=== PATIENT | female | born 1980 ===

== ENCOUNTER → 2019-05-09 | Outpatient (CLI) | payer SELFPAY ==
--- NOTE | 2019-05-09 15:30 | Diagnostic Imaging Report ---
TECHNIQUE: Live grayscale ultrasound of the soft tissues of the posterior neck. COMPARISON: None REASON FOR EXAM: Lump on the neck for six weeks. FINDINGS: No mass or fluid collection is seen in the posterior soft tissues of the neck. No evidence of lymphadenopathy. IMPRESSION: No abnormalities are visualized in the posterior soft tissues of the neck. No focal mass or fluid collection in the area of the patient's reported palpable abnormality. Dictated by: Dictated on workstation # [id number]
== END ==
LOC: RAD 11:18
PROVIDERS: ATTEND Nurse Practitioner Family
DX: R21 Rash and other nonspecific skin eruption (principal)
CPT/HCPCS: 76536

== ENCOUNTER 2023-02-27 15:57 | Emergency (ER) | payer SELFPAY ==
[~2023-02-27] VITALS: Ht 157 cm; Wt 119.0 kg
[2023-02-27 16:00] VITALS: BP 140/97
[2023-02-27 16:23] LABS: BASOPHILS # (AUTO) 0.1 10^3/uL (0.0-0.1); BASOPHILS % (AUTO) 1 % (0-10); EOSINOPHILS # (AUTO) 0.1 10^3/uL (0.0-0.3); EOSINOPHILS % (AUTO) 0 % (0-10); HEMATOCRIT 44 % (35-52); HEMOGLOBIN 14.8 g/dL (11.5-16.0); LYMPHOCYTES # (AUTO) 4.9 10^3/uL (1.0-4.0); LYMPHOCYTES % (AUTO) 29 % (12-44); MEAN CORPUSCULAR HEMOGLOBIN 29 pg (25-34); MEAN CORPUSCULAR HGB CONC 33 g/dL (32-36); MEAN CORPUSCULAR VOLUME 86 fL (80-99); MEAN PLATELET VOLUME 8.9 fL (9.0-12.2); MONOCYTES # (AUTO) 1.2 10^3/uL (0.0-1.0); MONOCYTES % (AUTO) 7 % (0-12); NEUTROPHILS # (AUTO) 10.4 10^3/uL (1.8-7.8); NEUTROPHILS % (AUTO) 62 % (42-75); PLATELET COUNT 388 10^3/uL (130-400); WHITE BLOOD COUNT 16.7 10^3/uL (4.3-11.0)
[2023-02-27 16:32] LABS: ALBUMIN 4.4 GM/DL (3.2-4.5); CHLORIDE 102 MMOL/L (98-107); SODIUM 137 MMOL/L (135-145)
[2023-02-27 16:33] LABS: CALCIUM 9.5 MG/DL (8.5-10.1)
[2023-02-27 16:34] LABS: GLUCOSE 105 MG/DL (70-105); TOTAL PROTEIN 7.9 GM/DL (6.4-8.2)
[2023-02-27 16:35] LABS: CARBON DIOXIDE 24 MMOL/L (21-32)
[2023-02-27 16:36] LABS: BILIRUBIN,TOTAL 0.6 MG/DL (0.1-1.0)
[2023-02-27 16:37] LABS: ALKALINE PHOSPHATASE 94 U/L (40-136)
[2023-02-27 16:38] LABS: CREATININE SERUM 0.75 MG/DL (0.60-1.30); GFR ESTIMATED 102
[2023-02-27 16:39] LABS: BUN/CREATININE RATIO 27
[2023-02-27 16:41] LABS: ALANINE AMINOTRANSFERASE 19 U/L (0-55); MAGNESIUM 2.4 MG/DL (1.6-2.4)
[2023-02-27 16:43] LABS: LYMPHOCYTES % (MANUAL) 26 %; MONOCYTES % (MANUAL) 6 %; NEUTROPHILS % (MANUAL) 68 %; POLYCHROMASIA SLIGHT
--- NOTE | 2023-02-27 16:43 | ED General ---
General Chief Complaint: General Problems/Pain Stated Complaint: CONFUSION, UNBALANCED, UNABLE TO FOCUS Nursing Triage Note: ARRIVED VIA AMB FROM [facility] WITH COMPLAINTS OF BEING TIRED, CONFUSED, PALPITIONS, AND SOA THAT STARTED YESTERDAY. DENIES CHEST PAIN. 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 She has difficulty focusing. She is thirsty and has dry lips. She has experienced some SOA and chest discomfort. She is afebrile with stable vitals sign at this time. She denies fever, chills, diarrhea, nausea or vomiting. She reports sore throat when directly asked. Allergies and Home Medications Allergies Coded Allergies: No Known Drug Allergies (Unverified , 02/27/23) Patient Home Medication List Home Medication List Reviewed: Yes Review of Systems Review of Systems Constitutional: see HPI EENTM: no symptoms reported Respiratory: see HPI Cardiovascular: see HPI Gastrointestinal: no symptoms reported Genitourinary: frequency : No Musculoskeletal: no symptoms reported Skin: no symptoms reported Psychiatric/Neurological: See HPI Hematologic/Lymphatic: No Symptoms Reported Immunological/Allergic: no symptoms reported Past Zkjmjmk-Qnjjpp-Nudtsk Hx Patient Social History Tobacco Use?: No Substance use?: No Alcohol Use?: No Past Medical History Surgeries: Yes Section, Hysterectomy (with BSO) Respiratory: No Cardiac: Yes Hypertension Neurological: No : 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 oz. kg; 48.00 BMI Method: General Appearance: No Apparent Distress, WD/WN HEENT: PERRL/EOMI, Normal ENT Inspection, Pharyngeal Erythema Neck: Normal Inspection; No JVD Respiratory: Lungs Clear, Normal Breath Sounds, No Accessory Muscle Use Cardiovascular: Regular Rate, Rhythm, No Edema, No Murmur Gastrointestinal: Normal Bowel Sounds, Non Tender, Soft Extremity: Normal Inspection, Non Tender, No Calf Tenderness, No Pedal Edema Neurologic/Psychiatric: Alert, Oriented x3, No Motor/Sensory Deficits, Normal Mood/Affect Skin: Normal Color, Warm/Dry Progress/Results/Core Measures Suspected Sepsis SIRS Temperature: Pulse: 72 Respiratory Rate: 16 Laboratory Tests 02/27/23 16:17: White Blood Count 16.7H Blood Pressure 140 /97 Mean: 111 Laboratory Tests 02/27/23 16:17: Creatinine 0.75, INR Comment 1.0, Platelet Count 388, Total Bilirubin 0.6 Results/Orders Lab Results Laboratory Tests Test 02/27/23 16:17 02/27/23 16:38 Range/Units White Blood Count 16.7 H 4.3-11.0 10^3/uL Red Blood Count 5.13 H 3.80-5.11 10^6/uL Hemoglobin 14.8 11.5-16.0 g/dL Hematocrit 44 35-52 % Mean Corpuscular Volume 86 80-99 fL Mean Corpuscular Hemoglobin 29 25-34 pg Mean Corpuscular Hemoglobin Concent 33 32-36 g/dL Red Cell Distribution Width 12.4 10.0-14.5 % Platelet Count 388 130-400 10^3/uL Mean Platelet Volume 8.9 L 9.0-12.2 fL Immature Granulocyte % (Auto) 1 % Neutrophils (%) (Auto) 62 42-75 % Lymphocytes (%) (Auto) 29 12-44 % Monocytes (%) (Auto) 7 0-12 % Eosinophils (%) (Auto) 0 0-10 % Basophils (%) (Auto) 1 0-10 % Neutrophils # (Auto) 10.4 H 1.8-7.8 10^3/uL Lymphocytes # (Auto) 4.9 H 1.0-4.0 10^3/uL Monocytes # (Auto) 1.2 H 0.0-1.0 10^3/uL Eosinophils # (Auto) 0.1 0.0-0.3 10^3/uL Basophils # (Auto) 0.1 0.0-0.1 10^3/uL Immature Granulocyte # (Auto) 0.2 H 0.0-0.1 10^3/uL Neutrophils % (Manual) 68 % Lymphocytes % (Manual) 26 % Monocytes % (Manual) 6 % Polychromasia SLIGHT Prothrombin Time 13.0 12.2-14.7 SEC INR Comment 1.0 0.8-1.4 Activated Partial Thromboplast Time 24 24-35 SEC Sodium Level 137 135-145 MMOL/L Potassium Level 4.0 3.6-5.0 MMOL/L Chloride Level 102 98-107 MMOL/L Carbon Dioxide Level 24 21-32 MMOL/L Anion Gap 11 5-14 MMOL/L Blood Urea Nitrogen 20 H 7-18 MG/DL Creatinine 0.75 0.60-1.30 MG/DL Estimat Glomerular Filtration Rate 102 BUN/Creatinine Ratio 27 Glucose Level 105 70-105 MG/DL Calcium Level 9.5 8.5-10.1 MG/DL Corrected Calcium 9.2 8.5-10.1 MG/DL Magnesium Level 2.4 1.6-2.4 MG/DL Total Bilirubin 0.6 0.1-1.0 MG/DL Aspartate Amino Transf (AST/SGOT) 13 5-34 U/L Alanine Aminotransferase (ALT/SGPT) 19 0-55 U/L Alkaline Phosphatase 94 40-136 U/L Myoglobin 17.2 10.0-92.0 NG/ML Troponin I < 0.028 <0.028 NG/ML Total Protein 7.9 6.4-8.2 GM/DL Albumin 4.4 3.2-4.5 GM/DL Influenza Type A (RT-PCR) Not Detected Not Detecte Influenza Type B (RT-PCR) Not Detected Not Detecte SARS-CoV-2 RNA (RT-PCR) Detected H Not Detecte Group A Streptococcus Screen Not Detected NotDetected My Orders Orders - DARLENE BEACH MD Cbc And Automated Diff (02/27/23 16:12) Magnesium (02/27/23 16:12) Chest 1 View, Ap/Pa Only (02/27/23 16:12) Ekg Tracing (02/27/23 16:12) Comprehensive Metabolic Panel (02/27/23 16:12) Myoglobin Serum (02/27/23 16:12) Protime With Inr (02/27/23 16:12) Partial Thromboplastin Time (02/27/23 16:12) O2 (02/27/23 16:12) Monitor-Rhythm Ecg Trace Only (02/27/23 16:12) Ed Iv/Invasive Line Start (02/27/23 16:12) Troponin I Ashley (02/27/23 16:12) Manual Differential (02/27/23 16:17) Covid 19 Inhouse Test (02/27/23 16:41) Influenza A And B By Pcr (02/27/23 16:41) Rapid Strep A Screen (02/27/23 16:41) Vital Signs/I&O Capillary Refill : Less Than 3 Seconds Blood Pressure Mean: 111 Progress Note : Progress Note Chest pain work-up was pursued. ECG was unremarkable per my interpretation as noted below. Chest x-ray report reviewed as normal as noted in review of report below. Labs interpreted by me revealed leukocytosis with WBC count. CMP and troponin were unremarkable. COVID 19 swab was positive. Flu and rapid strep were negative. See discharge instructions for further discussion. ECG Initial ECG Impression Date: Feb 27, 2023 Initial ECG Impression Time: 16:30 Initial ECG Rate: 65 Initial ECG Rhythm: Normal Sinus Initial ECG Intervals: Normal Initial ECG Impression: Normal Comment Normal sinus rhythm with no ST elevation or depression. No abnormal intervals or axis deviation. Diagnostic Imaging Diagonstic Imaging: Xray Plain Films/CT/US/NM/MRI: chest Comments NAME: DARIEL RITCHIE [facility] REC#: [id number] PT STATUS: REG ER : 1980 PHYSICIAN: DARLENE BEACH MD ADMIT DATE: 02/27/23/ER Signed Date of Exam:02/27/23 CHEST 1 VIEW, AP/PA ONLY INDICATION: Heart palpitations, shortness of breath, confusion. Portable chest 4:31 PM Heart size and pulmonary vascularity are normal. Lungs are clear. There are no effusions or pneumothoraces. IMPRESSION: No acute abnormalities in the chest Dictated by: Dictated on workstation # [id number] Dict: 02/27/23 1646 Trans: 02/27/231699 [id number] Interpreted by: SARA HARTMAN MD Electronically signed by: SARA HARTMAN MD 02/27/231699 Departure Impression Primary Impression: COVID-19 Additional Impression: Leukocytosis Qualified Codes: D72.829 - Elevated white blood cell count, unspecified Disposition: 01 HOME, SELF-CARE Condition: Stable Departure-Patient Inst. Decision time for Depature: 19:30 Referrals: [facility] (PCP/Family) Primary Care Physician Patient Instructions: COVID-19 ED Add. Discharge Instructions: You tested positive for COVID-19. Drink plenty of clear liquids to stay well-hydrated and eat a well-balanced diet. You may take ibuprofen up to 600 mg every 6 hours and/or Tylenol (acetaminophen) up to 1000 mg every 6 hours as needed for pain or fever. You should quarantine for a full 5 days. After your quarantine, you should wear a mask for an additional 5 days when you are around others. You had a high white blood cell count in your labs in the ER. You should follow-up with your primary care provider in a couple of weeks to have your white blood cell count checked again to ensure it returns to normal. Return to care if you have worsening symptoms despite following these instructions. All discharge instructions reviewed with patient and/or family. Voiced understanding. Copy Copies To 1: [facility]/DARLENE DA SILVA MD Feb 27, 2023 16:43
--- NOTE | 2023-02-27 16:49 | Diagnostic Imaging Report ---
INDICATION: Heart palpitations, shortness of breath, confusion. Portable chest 4:31 PM Heart size and pulmonary vascularity are normal. Lungs are clear. There are no effusions or pneumothoraces. IMPRESSION: No acute abnormalities in the chest Dictated by: Dictated on workstation # [id number]
== END 2023-02-27 19:49 | disposition home or self-care (01) ==
LOC: EDUNIT# 15:57 → ER 16:04
DX: U07.1 COVID-19 (principal); R00.2 Palpitations; R06.02 Shortness of breath; R41.0 Disorientation, unspecified; R51.9 Headache, unspecified; R53.83 Other fatigue; R63.1 Polydipsia
CPT/HCPCS: 36415; 71045; 80053; 83735; 83874; 84484; 85007; 85027; 85610; 85730; 87430; 87636; 93005; 93041